=== PATIENT | male | born 1960 | race Caucasian/White ===

== ENCOUNTER 2018-11-09 10:01 | Inpatient (IN) | payer OTHER ==
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
[2018-11-09] MEDS ORDERED: P-EPHED 60MG/TRIPROLIDI 2.5MG TABLET PO PRN (11:45)
[2018-11-09] MEDS ORDERED: ACETAMINOPHEN 325 MG TABLET (FP) PO PRN (11:45)
[2018-11-09] MEDS ORDERED: LOPERAMIDE HCL 2 MG CAPSULE PO PRN (11:45)
[2018-11-09] MEDS ORDERED: MAGNESIUM CITRATE 300 ML BOTTLE PO PRN (11:45)
[2018-11-09] MEDS ORDERED: MAG HYDROX/AL HYDROX/SIMETH 30 ML UNIT-DOSE CUP PO PRN (11:45)
[2018-11-09] MEDS ORDERED: hydrOXYzine PAMOATE 50 MG CAPSULE (FP) PO PRN (11:45)
[2018-11-09] MEDS ORDERED: guaiFENesin/D-METHORPHAN HB 10 ML UNIT-DOSE CUPS PO PRN (11:45)
[2018-11-09] MEDS ORDERED: MENTHOL/PHENOL 1 EACH UD MM PRN (11:45)
[2018-11-09] MEDS ORDERED: chlordiazePOXIDE HCL 25 MG CAPSULE PO PRN (11:45)
[2018-11-09] MEDS ORDERED: MAGNESIUM HYDROX 2400MG/30ML ORAL SUSPENSION 30 ML CUP PO PRN (11:45)
[2018-11-09 11:50] VITALS: BMI 25.1
--- NOTE | 2018-11-09 14:33 | EKG ---
Test Reason : Blood Pressure : / mmHG Vent. Rate : 083 BPM Atrial Rate : 083 BPM P-R Int : 136 ms QRS Dur : 104 ms QT Int : 404 ms P-R-T Axes : 045 -43 032 degrees QTc Int : 474 ms NORMAL SINUS RHYTHM LEFT AXIS DEVIATION ABNORMAL ECG WHEN COMPARED WITH ECG OF 08-OCT-2012 13:05, NO SIGNIFICANT CHANGE WAS FOUND Confirmed by SAUNDRA BUTCHER MD ([id number]) on 11/09/2018 2:33:27 PM Referred By: Confirmed By:SAUNDRA BUTCHER MD
[2018-11-09] MEDS: chlordiazePOXIDE HCL 25 MG CAPSULE PO SCH ×2 (16:59→22:54)
[2018-11-09] MEDS ORDERED: MELATONIN 5 MG TABLETS PO PRN (22:00)
[2018-11-09] MEDS: BACITRACIN 0.9 GM PACKET TP SCH (22:54)
[2018-11-09] MEDS: THIAMINE HCL 100 MG TABLET (FP) PO SCH (22:54)
[2018-11-09 23:24] LABS: URINE APPEARANCE CLEAR; URINE BILIRUBIN NEGATIVE (<2.0 mg/dL); URINE COLOR YELLOW; URINE GLUCOSE (UA) NEGATIVE (NEGATIVE); URINE KETONE NEGATIVE (NEGATIVE); URINE LEUK ESTERASE NEGATIVE (NEGATIVE); URINE NITRITE NEGATIVE (NEGATIVE); URINE PROTEIN NEGATIVE (NEGATIVE)
[2018-11-10] MEDS: chlordiazePOXIDE HCL 25 MG CAPSULE PO SCH ×2 (05:34→11:08)
--- NOTE | 2018-11-10 10:01 | CONSULT ---
[facility] Psychiatric Consult - Data Date of interview: 11/10/18 Admission source: [facility] Identifying data: this 58 yeras old male with alcohol dependence,seeking detox, withdrawal symptom,last detox [facility] 2012 not completed. seizure last 2 weeks ago. syncope. seen at [facility]. longest period of sobriety 15 years. bipolar disorder. frequent fall,last 3 days ago Substance Abuse History: Smoking history: Former smoker. Have you smoked in the past 12 months: No. Aproximately how many cigarettes per day: 0. If you are a former smoker, when did you quit?: at age 51. Hx Chewing Tobacco Use: No. Initiated information on smoking cessation: No. - Substance & Tx. History. Hx Alcohol Use: Yes. Hx Substance Use: Yes. Substance Use Type: Alcohol. Hx Substance Use Treatment: Yes (2011 [facility] not completed). - Substances Abused. Alcohol-beer. Route: Oral. Frequency: Daily. Amount used: 1-6 pk. Age of first use: 11. Date of Last Use: 11/08/18
[2018-11-10 10:55] LABS: HEMATOCRIT 34.3 % (35.4-49); HEMOGLOBIN 11.4 GM/dL (11.7-16.9); MCH 25.8 pg (25.7-33.7); MCHC 33.2 g/dl (32.0-35.9); MEAN CELL VOLUME 77.8 fl (80-96); MEAN PLT VOLUME 9.9 fl (7.5-11.1); PLATELET COUNT 267 K/MM3 (134-434); RBC 4.41 M/mm3 (4.00-5.60); RDW 17.5 % (11.9-15.9); WHITE BLOOD COUNT 4.9 K/mm3 (4.0-10.0)
[2018-11-10] MEDS: PRENATAL VITAMINS W/ FOLIC ACID TABLET (FP) PO SCH (11:08)
[2018-11-10] MEDS: BACITRACIN 0.9 GM PACKET TP SCH ×2 (11:08→22:31)
[2018-11-10 11:31] LABS: ALBUMIN 3.6 g/dl (3.4-5.0); ALK PHOS 150 U/L (45-117); ANION GAP 12 MMOL/L (8-16); BILIRUBIN,TOTAL 0.8 mg/dL (0.2-1); BLOOD UREA NITROGEN 6 mg/dL (7-18); CHLORIDE 102 mmol/L (98-107); CO2 24 mmol/L (21-32); CREATININE 0.6 mg/dL (0.55-1.3); GLUCOSE,RANDOM 93 mg/dL (74-106); POTASSIUM 3.6 mmol/L (3.5-5.1); SGOT/AST 157 U/L (15-37); SGPT/ALT 112 U/L (13-61); SODIUM 139 mmol/L (136-145); TOT PROT 8.3 g/dl (6.4-8.2)
--- NOTE | 2018-11-10 16:35 | PN ---
[facility] CIWA - CIWA Score Nausea/Vomitin-Mild Nausea/No Vomiting Muscle Tremors: 5 Anxiety: 4-Mod. Anxious/Guarded Agitation: 3 Paroxysmal Sweats: 1-Minimal Palms Moist Orientation: 0-Oriented Tacttile Disturbances: 0-None Auditory Disturbances: 0-None Visual Disturbances: 0-None Headache: 0-None Present CIWA-Ar Total Score: 14 [facility] Progress Note (SOAP) Subjective: tremor sweat anxiety nausea Objective: 11/10/18 16:37 Vital Signs Temperature 96.7 F L 11/10/18 09:45 Pulse Rate 102 H 11/10/18 09:45 Respiratory Rate 18 11/10/18 09:45 Blood Pressure 120/83 11/10/18 09:45 O2 Sat by Pulse Oximetry (%) Laboratory Last Values WBC 4.9 K/mm3 (4.0-10.0) 11/10/18 06:00 RBC 4.41 M/mm3 (4.00-5.60) 11/10/18 06:00 Hgb 11.4 GM/dL (11.7-16.9) L 11/10/18 06:00 Hct 34.3 % (35.4-49) L 11/10/18 06:00 MCV 77.8 fl (80-96) L 11/10/18 06:00 MCH 25.8 pg (25.7-33.7) D 11/10/18 06:00 MCHC 33.2 g/dl (32.0-35.9) 11/10/18 06:00 RDW 17.5 % (11.9-15.9) H 11/10/18 06:00 Plt Count 267 K/MM3 (134-434) D 11/10/18 06:00 MPV 9.9 fl (7.5-11.1) D 11/10/18 06:00 Sodium 139 mmol/L (136-145) 11/10/18 06:00 Potassium 3.6 mmol/L (3.5-5.1) 11/10/18 06:00 Chloride 102 mmol/L (98-107) 11/10/18 06:00 Carbon Dioxide 24 mmol/L (21-32) 11/10/18 06:00 Anion Gap 12 MMOL/L (8-16) 11/10/18 06:00 BUN 6 mg/dL (7-18) L 11/10/18 06:00 Creatinine 0.6 mg/dL (0.55-1.3) 11/10/18 06:00 Creat Clearance w eGFR > 60 (>60) 11/10/18 06:00 Random Glucose 93 mg/dL (74-106) 11/10/18 06:00 Calcium 9.0 mg/dL (8.5-10.1) 11/10/18 06:00 Total Bilirubin 0.8 mg/dL (0.2-1) 11/10/18 06:00 AST 157 U/L (15-37) H 11/10/18 06:00 ALT 112 U/L (13-61) H 11/10/18 06:00 Alkaline Phosphatase 150 U/L (45-117) H 11/10/18 06:00 Ammonia 117.10 umol/L (11-32) H 11/10/18 12:20 Total Protein 8.3 g/dl (6.4-8.2) H 11/10/18 06:00 Albumin 3.6 g/dl (3.4-5.0) 11/10/18 06:00 Urine Color Yellow 11/09/18 18:52 Urine Appearance Clear 11/09/18 18:52 Urine pH 8.0 (5.0-8.0) D 11/09/18 18:52 Ur Specific [place] 1.014 (1.010-1.035) 11/09/18 18:52 Urine Protein Negative (NEGATIVE) 11/09/18 18:52 Urine Glucose (UA) Negative (NEGATIVE) 11/09/18 18:52 Urine Ketones Negative (NEGATIVE) 11/09/18 18:52 Urine Blood Negative (NEGATIVE) 11/09/18 18:52 Urine Nitrite Negative (NEGATIVE) 11/09/18 18:52 Urine Bilirubin Negative (<2.0 mg/dL) 11/09/18 18:52 Urine Urobilinogen 2.0 mg/dL (0.2-1.0) 11/09/18 18:52 Ur Leukocyte Esterase Negative (NEGATIVE) 11/09/18 18:52 RPR Titer Nonreactive (NONREACTIVE) 11/10/18 06:00 lab noted lactulose Assessment: 11/10/18 16:36 withdrawal sx Plan: continue detox
[2018-11-10] MEDS ORDERED: chlordiazePOXIDE HCL 25 MG CAPSULE PO SCH (17:00)
[2018-11-10] MEDS ORDERED: ONDANSETRON *ODT* 4 MG TABLET SL ONE (17:15)
[2018-11-10] MEDS: LORazepam 1 MG TABLET PO SCH ×2 (17:36→23:41)
[2018-11-10] MEDS: IBUPROFEN 400 MG TABLET (FP) PO PRN (17:37)
[2018-11-10] MEDS: LACTULOSE 20 GM/30 ML UDC (FOR ORAL USE ONLY) PO SCH ×2 (18:53→22:36)
[2018-11-10] MEDS ORDERED: SUVOREXANT 10 MG TABLET PO PRN (22:00)
[2018-11-10] MEDS: THIAMINE HCL 100 MG TABLET (FP) PO SCH (22:31)
[2018-11-11] MEDS: LORazepam 1 MG TABLET PO SCH ×4 (06:44→23:03)
[2018-11-11] MEDS: LACTULOSE 20 GM/30 ML UDC (FOR ORAL USE ONLY) PO SCH ×4 (11:03→23:09)
[2018-11-11] MEDS: BACITRACIN 0.9 GM PACKET TP SCH ×2 (11:03→23:03)
[2018-11-11] MEDS: PRENATAL VITAMINS W/ FOLIC ACID TABLET (FP) PO SCH (11:05)
[2018-11-11] MEDS: LORazepam 1 MG TABLET PO PRN (11:07)
--- NOTE | 2018-11-11 11:58 | PN ---
[facility] CIWA - CIWA Score Nausea/Vomitin-No Nausea/No Vomiting Muscle Tremors: 3 Anxiety: 3 Agitation: 3 Paroxysmal Sweats: 2 Orientation: 0-Oriented Tacttile Disturbances: 0-None Auditory Disturbances: 0-None Visual Disturbances: 0-None Headache: 0-None Present CIWA-Ar Total Score: 11 S Progress Note (SOAP) Subjective: PATIENT ANXIOUS/RESTLESS. C/O SHAKES, SWEATING AND SLEEP DISTURBANCE. Objective: 11/11/18 11:56 Vital Signs Temperature 96.7 F L 11/11/18 10:49 Pulse Rate 86 11/11/18 10:49 Respiratory Rate 20 11/11/18 10:49 Blood Pressure 97/62 11/11/18 10:49 O2 Sat by Pulse Oximetry (%) Laboratory Tests 11/09/18 11/10/18 11/10/18 18:52 06:00 06:00 WBC 4.9 RBC 4.41 Hgb 11.4 L Hct 34.3 L MCV 77.8 L MCH 25.8 D MCHC 33.2 RDW 17.5 H Plt Count 267 D MPV 9.9 D Sodium 139 Potassium 3.6 Chloride 102 Carbon Dioxide 24 Anion Gap 12 BUN 6 L Creatinine 0.6 Creat Clearance w eGFR > 60 Random Glucose 93 Calcium 9.0 Total Bilirubin 0.8 AST 157 H ALT 112 H Alkaline Phosphatase 150 H Ammonia Total Protein 8.3 H Albumin 3.6 Urine Color Yellow Urine Appearance Clear Urine pH 8.0 D Ur Specific [place] 1.014 Urine Protein Negative Urine Glucose (UA) Negative Urine Ketones Negative Urine Blood Negative Urine Nitrite Negative Urine Bilirubin Negative Urine Urobilinogen 2.0 Ur Leukocyte Esterase Negative RPR Titer 11/10/18 11/10/18 06:00 12:20 WBC RBC Hgb Hct MCV MCH MCHC RDW Plt Count MPV Sodium Potassium Chloride Carbon Dioxide Anion Gap BUN Creatinine Creat Clearance w eGFR Random Glucose Calcium Total Bilirubin AST ALT Alkaline Phosphatase Ammonia 117.10 H Total Protein Albumin Urine Color Urine Appearance Urine pH Ur Specific [place] Urine Protein Urine Glucose (UA) Urine Ketones Urine Blood Urine Nitrite Urine Bilirubin Urine Urobilinogen Ur Leukocyte Esterase RPR Titer Nonreactive PE: +FLUSHED FACIAL SKIN, MOIST ALERT AND ORIENTED X 3 EXT +TREMORS, FULL ROM ANXIOUS RESTLESS Assessment: 11/11/18 11:57 WITHDRAWAL SX ELEVATED AMMONIA LEVEL Plan: CONTINUE DETOX ENCOURAGE ORAL FLUIDS CONTINUE LACTULOSE REPEAT AMMONIA LEVEL IN AM CONTINUE TO MONITOR
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
[2018-11-11] MEDS ORDERED: chlordiazePOXIDE 5 MG CAPSULE PO SCH (17:00)
[2018-11-11] MEDS: IBUPROFEN 400 MG TABLET (FP) PO PRN (17:17)
[2018-11-11] MEDS: THIAMINE HCL 100 MG TABLET (FP) PO SCH (23:03)
[2018-11-12] MEDS: IBUPROFEN 400 MG TABLET (FP) PO PRN (05:14)
[2018-11-12] MEDS: LORazepam 1 MG TABLET PO SCH (05:14)
[2018-11-12] MEDS: LORazepam 1 MG TABLET PO PRN (09:22)
[2018-11-12 09:38] VITALS: BP 102/65; PULSE 67; TEMP 98.3
[2018-11-12] MEDS: LACTULOSE 20 GM/30 ML UDC (FOR ORAL USE ONLY) PO SCH (10:21)
[2018-11-12] MEDS: PRENATAL VITAMINS W/ FOLIC ACID TABLET (FP) PO SCH (10:21)
[2018-11-12] MEDS: BACITRACIN 0.9 GM PACKET TP SCH (10:21)
--- NOTE | 2018-11-12 10:48 | PN ---
S Progress Note (SOAP) Subjective: Irritable, anxious, interrupted sleep, headache, N/V with abdominal pain Patient not sure why he is here, very unhappy for being here Objective: 11/12/18 10:47 Vital Signs - 8 hr 11/12/18 11/12/18 11/12/18 03:30 06:12 09:38 Temperature 97.0 F L 98.3 F Pulse Rate 83 67 Respiratory 18 18 18 Rate Blood Pressure 101/60 102/65 Laboratory Last Values WBC 4.9 K/mm3 (4.0-10.0) 11/10/18 06:00 RBC 4.41 M/mm3 (4.00-5.60) 11/10/18 06:00 Hgb 11.4 GM/dL (11.7-16.9) L 11/10/18 06:00 Hct 34.3 % (35.4-49) L 11/10/18 06:00 MCV 77.8 fl (80-96) L 11/10/18 06:00 MCH 25.8 pg (25.7-33.7) D 11/10/18 06:00 MCHC 33.2 g/dl (32.0-35.9) 11/10/18 06:00 RDW 17.5 % (11.9-15.9) H 11/10/18 06:00 Plt Count 267 K/MM3 (134-434) D 11/10/18 06:00 MPV 9.9 fl (7.5-11.1) D 11/10/18 06:00 Sodium 139 mmol/L (136-145) 11/10/18 06:00 Potassium 3.6 mmol/L (3.5-5.1) 11/10/18 06:00 Chloride 102 mmol/L (98-107) 11/10/18 06:00 Carbon Dioxide 24 mmol/L (21-32) 11/10/18 06:00 Anion Gap 12 MMOL/L (8-16) 11/10/18 06:00 BUN 6 mg/dL (7-18) L 11/10/18 06:00 Creatinine 0.6 mg/dL (0.55-1.3) 11/10/18 06:00 Creat Clearance w eGFR > 60 (>60) 11/10/18 06:00 Random Glucose 93 mg/dL (74-106) 11/10/18 06:00 Calcium 9.0 mg/dL (8.5-10.1) 11/10/18 06:00 Total Bilirubin 0.8 mg/dL (0.2-1) 11/10/18 06:00 AST 157 U/L (15-37) H 11/10/18 06:00 ALT 112 U/L (13-61) H 11/10/18 06:00 Alkaline Phosphatase 150 U/L (45-117) H 11/10/18 06:00 Ammonia 117.10 umol/L (11-32) H 11/10/18 12:20 Total Protein 8.3 g/dl (6.4-8.2) H 11/10/18 06:00 Albumin 3.6 g/dl (3.4-5.0) 11/10/18 06:00 Urine Color Yellow 11/09/18 18:52 Urine Appearance Clear 11/09/18 18:52 Urine pH 8.0 (5.0-8.0) D 11/09/18 18:52 Ur Specific [place] 1.014 (1.010-1.035) 11/09/18 18:52 Urine Protein Negative (NEGATIVE) 11/09/18 18:52 Urine Glucose (UA) Negative (NEGATIVE) 11/09/18 18:52 Urine Ketones Negative (NEGATIVE) 11/09/18 18:52 Urine Blood Negative (NEGATIVE) 11/09/18 18:52 Urine Nitrite Negative (NEGATIVE) 11/09/18 18:52 Urine Bilirubin Negative (<2.0 mg/dL) 11/09/18 18:52 Urine Urobilinogen 2.0 mg/dL (0.2-1.0) 11/09/18 18:52 Ur Leukocyte Esterase Negative (NEGATIVE) 11/09/18 18:52 RPR Titer Nonreactive (NONREACTIVE) 11/10/18 06:00 Labs noted Assessment: 11/12/18 10:48 Withdrawal sx Plan: Continue detox
[2018-11-12] MEDS ORDERED: chlordiazePOXIDE HCL 10 MG CAPSULE PO SCH (17:00)
[2018-11-13] MEDS ORDERED: LORazepam 1 MG TABLET PO ONE (06:00)
== END 2018-11-12 11:38 | disposition left against medical advice (07) | DRG 770 ==
LOC: YASAS 10:01 → Y3N 11:49
PROC: HZ2ZZZZ Detoxification Services for Substance Abuse Treatment (ICD-10-PCS; principal; 2018-11-09)
DX: F10.230 Alcohol dependence with withdrawal, uncomplicated (principal); F19.24 Other psychoactive substance dependence with psychoactive substance-induced mood disorder; F31.9 Bipolar disorder, unspecified; Z63.4 Disappearance and death of family member; B18.2 Chronic viral hepatitis C; R00.0 Tachycardia, unspecified; E72.20 Disorder of urea cycle metabolism, unspecified; E86.0 Dehydration; R29.6 Repeated falls; K21.9 Gastro-esophageal reflux disease without esophagitis; Z86.69 Personal history of other diseases of the nervous system and sense organs; Z88.8 Allergy status to other drugs, medicaments and biological substances; Z87.19 Personal history of other diseases of the digestive system; Z87.891 Personal history of nicotine dependence; Z59.0 Homelessness
CPT/HCPCS: 36415; 80053; 81003; 82140; 85027; 86593; 93005; 93010; Q0162

== ENCOUNTER 2020-10-19 17:26 | Inpatient (IN) | payer OTHER ==
[2020-10-19 17:42] VITALS: BP 101/59; PULSE 102; TEMP 97.6; BMI 26.6
[2020-10-19 20:24] LABS: BASO % 1.5 % (0-2.0); EOS % 15.7 % (0-4.5); HEMATOCRIT 25.5 % (35.4-49); HEMOGLOBIN 7.8 GM/dL (11.7-16.9); LYMPH % 13.4 % (8-40); MCH 21.5 pg (25.7-33.7); MCHC 30.5 g/dl (32.0-35.9); MEAN CELL VOLUME 70.5 fl (80-96); MEAN PLT VOLUME 7.2 fl (7.5-11.1); MONO % 10.5 % (3.8-10.2); NEUT % 58.9 % (42.8-82.8); PLATELET COUNT 198 K/MM3 (134-434); RBC 3.61 M/mm3 (4.00-5.60); RDW 20.8 % (11.9-15.9); WHITE BLOOD COUNT 6.6 K/mm3 (4.0-10.0)
[2020-10-19 20:42] LABS: CHLORIDE 108 mmol/L (98-107); POTASSIUM 3.7 mmol/L (3.5-5.1); SODIUM 140 mmol/L (136-145)
[2020-10-19 20:43] LABS: CALCIUM 8.4 mg/dL (8.5-10.1)
[2020-10-19 20:44] LABS: ALBUMIN 2.5 g/dl (3.4-5.0); ANION GAP 7 MMOL/L (8-16); CO2 26 mmol/L (21-32); GLUCOSE,RANDOM 91 mg/dL (74-106); MAGNESIUM 1.8 mg/dL (1.8-2.4)
[2020-10-19 20:47] LABS: CREATININE 0.6 mg/dL (0.55-1.3); SGOT/AST 143 U/L (15-37); SGPT/ALT 115 U/L (13-61)
[2020-10-19 20:49] LABS: BILIRUBIN,TOTAL 0.9 mg/dL (0.2-1); TOT PROT 7.3 g/dl (6.4-8.2)
[2020-10-19 20:50] LABS: ALK PHOS 184 U/L (45-117)
[2020-10-19 21:39] LABS: ANISOCYTOSIS 3+; MACROCYTOSIS 0; PLATELET ESTIMATE NORMAL
== END 2020-10-20 00:30 | disposition left against medical advice (07) | DRG 770 ==
LOC: JER 17:26 → JERBED 22:22
PROVIDERS: ADMIT Internal Medicine; ATTEND Internal Medicine
DX: F10.129 Alcohol abuse with intoxication, unspecified (principal); R55 Syncope and collapse; K21.9 Gastro-esophageal reflux disease without esophagitis; D64.9 Anemia, unspecified; B19.20 Unspecified viral hepatitis C without hepatic coma
CPT/HCPCS: 36415; 70450-TC; 71045-TC-FY; 72125-TC; 80053; 82550; 83735; 84484; 85025; 93005; 93010; 99285-25; C9803; U0003

== ENCOUNTER 2024-12-14 00:09 | Inpatient (IN) | payer OTHER ==
[2024-12-14] MEDS ORDERED: THIAMINE HCL 200 MG/2 ML VIAL ONE ×2 (02:08→05:02)
[2024-12-14] MEDS: THIAMINE HCL 200 MG/2 ML VIAL IVPB ONE ×3 (03:00→05:25)
[2024-12-14 03:14] LABS: BASO % 0.7 % (0-2.0); EOS % 3.5 % (0-4.5); HEMATOCRIT 37.4 % (35.4-49); HEMOGLOBIN 12.4 GM/dL (11.7-16.9); MCH 28.4 pg (25.7-33.7); MCHC 33.1 g/dl (32.0-35.9); MEAN CELL VOLUME 85.6 fl (80-96); MEAN PLT VOLUME 7.9 fl (7.5-11.1); MONO % 10.8 % (3.8-10.2); PLATELET COUNT 68 10^3/uL (134-434); RBC 4.37 M/mm3 (4.00-5.60); RDW 16.4 % (11.9-15.9); WHITE BLOOD COUNT 3.1 K/mm3 (4.0-10.0)
[2024-12-14 03:26] LABS: VENOUS BASE EXCESS -1.5 mmol/L (-2-2); VENOUS O2 SATURATION 82.2 % (70-80); VENOUS PH 7.468 (7.310-7.410)
[2024-12-14 03:32] LABS: POTASSIUM 3.9 mmol/L (3.5-5.1)
[2024-12-14 03:34] LABS: ALBUMIN 2.9 g/dl (3.4-5.0); CALCIUM 8.8 mg/dL (8.5-10.1)
[2024-12-14 03:35] LABS: BLOOD UREA NITROGEN 10.3 mg/dL (7-18)
[2024-12-14 03:37] LABS: CREATININE 0.6 mg/dL (0.55-1.3)
[2024-12-14 03:39] LABS: TOT PROT 7.6 g/dl (6.4-8.2)
[2024-12-14] MEDS ORDERED: FOLIC ACID 1 MG TABLET (FP) ONE (08:57)
[2024-12-14] MEDS: FOLIC ACID 1 MG TABLET (FP) PO SCH (09:10)
[2024-12-14 13:05] LABS: EPI CELLS 5 /uL (0-25.1); HYALINE CASTS 0 /uL (0-3.1); URINE APPEARANCE CLEAR; URINE BACTERIA 3 /uL (0-1359); URINE BILIRUBIN NEGATIVE (NEGATIVE); URINE COLOR DK YELLOW; URINE GLUCOSE (UA) NEGATIVE (NEGATIVE); URINE KETONE 1+ (NEGATIVE); URINE LEUK ESTERASE TRACE (NEGATIVE); URINE NITRITE NEGATIVE (NEGATIVE); URINE PROTEIN NEGATIVE (NEGATIVE); URINE RBC 42 /uL (0-23.9); URINE WBC 28 /uL (0-25.8)
[2024-12-14 14:32] LABS: COCAINE, UR NEGATIVE (NEGATIVE); METHADONE, UR NEGATIVE (NEGATIVE); OPIATES, URI NEGATIVE (NEGATIVE); PHENCYCLIDINE,URINE NEGATIVE (NEGATIVE); URINE AMPHETAMINES NEGATIVE (NEGATIVE); URINE BARBITURATES NEGATIVE (NEGATIVE); URINE BENZODIAZEPINES POSITIVE (NEGATIVE)
[2024-12-14] MEDS: TAMSULOSIN HCL 0.4 MG CAP PO SCH (14:32)
[2024-12-14] MEDS: LORazepam 2 MG/ML SDV VIAL IVPUSH PRN (14:58)
[2024-12-14] MEDS: LACTATED RINGERS SOLUTION 1,000 ML/1,000 ML INFUS.BAG IV SCH (15:05)
[2024-12-14] MEDS: LACTULOSE 20 GM/30 ML UDC (FOR ORAL USE ONLY) PO SCH (21:32)
[2024-12-14] MEDS ORDERED: LORazepam 2 MG/ML SDV VIAL IVPUSH PRN ×2 (21:40→21:41)
[2024-12-15 08:55] LABS: POTASSIUM 3.5 mmol/L (3.5-5.1)
[2024-12-15 09:03] LABS: ALBUMIN 2.7 g/dl (3.4-5.0); BLOOD UREA NITROGEN 9.7 mg/dL (7-18); CALCIUM 8.3 mg/dL (8.5-10.1); MAGNESIUM 1.7 mg/dL (1.8-2.4)
[2024-12-15 09:06] LABS: BILIRUBIN,TOTAL 1.3 mg/dL (0.2-1); CREATININE 0.5 mg/dL (0.55-1.3); PHOSPHOROUS 2.9 mg/dL (2.5-4.9); TOT PROT 6.8 g/dl (6.4-8.2)
[2024-12-15] MEDS: ENOXAPARIN NA (PORCINE) 40 MG/0.4 ML DISP.SYRIN SQ SCH (10:40)
[2024-12-15] MEDS: THIAMINE 100 MG TABLET PO SCH (10:40)
[2024-12-15] MEDS: AMMONIUM LACTATE 12% LOTION 225 GM BOTTLE TP SCH (10:40)
[2024-12-15] MEDS ORDERED: ACETAMINOPHEN 325 MG TABLET (FP) PO PRN (16:29)
[2024-12-15] MEDS ORDERED: SENNOSIDES 8.6MG TABLET (FP) PO PRN (16:32)
[2024-12-15] MEDS ORDERED: LACTATED RINGERS SOLUTION 1,000 ML/1,000 ML INFUS.BAG IV SCH (17:15)
[2024-12-15] MEDS: ACETAMINOPHEN 325 MG TABLET (FP) PO PRN (17:43)
[2024-12-15] MEDS: POLYETHYLENE GLYCOL (HEALTHYLAX) 3350 17 GM PACKET PO SCH (17:48)
[2024-12-15] MEDS: MAGNESIUM OXIDE 400 MG TABLET (FP) PO ONE ×2 (19:04→19:31)
[2024-12-15 21:00] LABS: HEMATOCRIT 37.9 % (35.4-49); HEMOGLOBIN 12.7 GM/dL (11.7-16.9); MCH 28.5 pg (25.7-33.7); MCHC 33.4 g/dl (32.0-35.9); MEAN CELL VOLUME 85.5 fl (80-96); MEAN PLT VOLUME 8.8 fl (7.5-11.1); PLATELET COUNT 76 10^3/uL (134-434); RBC 4.43 M/mm3 (4.00-5.60); RDW 16.3 % (11.9-15.9)
[2024-12-15 21:11] LABS: POTASSIUM 3.5 mmol/L (3.5-5.1)
[2024-12-15 21:14] LABS: ALBUMIN 2.8 g/dl (3.4-5.0); BLOOD UREA NITROGEN 10.5 mg/dL (7-18); CALCIUM 8.7 mg/dL (8.5-10.1); MAGNESIUM 1.7 mg/dL (1.8-2.4)
[2024-12-15 21:18] LABS: CREATININE 0.7 mg/dL (0.55-1.3)
[2024-12-15 21:19] LABS: BILIRUBIN,TOTAL 1.3 mg/dL (0.2-1); TOT PROT 7.3 g/dl (6.4-8.2)
[2024-12-15 21:23] LABS: WHITE BLOOD COUNT 1.9 K/mm3 (4.0-10.0)
[2024-12-15 22:14] LABS: ANISOCYTOSIS 2+; MACROCYTOSIS 0; OVALOCYTE 1+
[2024-12-15] MEDS: LORazepam 1 MG TABLET PO ONE (22:58)
[2024-12-15] MEDS: LORazepam 2 MG/ML SDV VIAL IM ONE (23:25)
[2024-12-16 09:15] LABS: HEMATOCRIT 39.7 % (35.4-49); HEMOGLOBIN 12.8 GM/dL (11.7-16.9); MCHC 32.2 g/dl (32.0-35.9); MEAN CELL VOLUME 87.1 fl (80-96); MEAN PLT VOLUME 8.5 fl (7.5-11.1); PLATELET COUNT 82 10^3/uL (134-434); RBC 4.56 M/mm3 (4.00-5.60); RDW 16.2 % (11.9-15.9)
[2024-12-16 09:17] LABS: POTASSIUM 3.7 mmol/L (3.5-5.1)
[2024-12-16 09:28] LABS: WHITE BLOOD COUNT 1.5 K/mm3 (4.0-10.0)
[2024-12-16 09:33] LABS: ALBUMIN 2.7 g/dl (3.4-5.0); BILIRUBIN,TOTAL 1.2 mg/dL (0.2-1); BLOOD UREA NITROGEN 9.2 mg/dL (7-18); CALCIUM 8.4 mg/dL (8.5-10.1); CREATININE 0.5 mg/dL (0.55-1.3)
[2024-12-16 10:54] LABS: ANISOCYTOSIS 0; HELMET CELLS 0; HOWELL-JOLLY BODIES 0; MACROCYTOSIS 0; OVALOCYTE 0; ROULEAU 0; SICKELED CELLS 0; TARGET CELLS 0; TEAR DROP CELLS 0; TOXIC GRANULATION 0
[2024-12-16] MEDS: LORazepam 1 MG TABLET PO ONE (22:43)
[2024-12-17] MEDS ORDERED: LORazepam 1 MG TABLET PO PRN (04:00)
[2024-12-17 08:00] LABS: HEMATOCRIT 38.3 % (35.4-49); HEMOGLOBIN 12.4 GM/dL (11.7-16.9); MCH 28.4 pg (25.7-33.7); MCHC 32.5 g/dl (32.0-35.9); MEAN CELL VOLUME 87.2 fl (80-96); MEAN PLT VOLUME 7.9 fl (7.5-11.1); PLATELET COUNT 77 10^3/uL (134-434); RBC 4.39 M/mm3 (4.00-5.60); RDW 16.2 % (11.9-15.9)
[2024-12-17 08:12] LABS: POTASSIUM 3.6 mmol/L (3.5-5.1)
[2024-12-17 08:16] LABS: BLOOD UREA NITROGEN 11.2 mg/dL (7-18); CALCIUM 8.4 mg/dL (8.5-10.1)
[2024-12-17 08:17] LABS: ALBUMIN 2.7 g/dl (3.4-5.0); MAGNESIUM 1.9 mg/dL (1.8-2.4)
[2024-12-17 08:20] LABS: CREATININE 0.5 mg/dL (0.55-1.3)
[2024-12-17 08:39] LABS: WHITE BLOOD COUNT 1.4 K/mm3 (4.0-10.0)
[2024-12-17 09:54] LABS: INR 1.16 (0.83-1.09); PROTHROMBIN TIME (PATIENT) 13.3 SEC (9.7-13.0)
[2024-12-17 09:57] LABS: ACTIVATED PTT 31.3 SECONDS (25.2-36.5)
[2024-12-17 10:10] VITALS: RESP 18
[2024-12-17 10:21] LABS: ANISOCYTOSIS 0; HELMET CELLS 0; HOWELL-JOLLY BODIES 0; MACROCYTOSIS 0; OVALOCYTE 0; ROULEAU 0; SICKELED CELLS 0; TARGET CELLS 0; TEAR DROP CELLS 0; TOXIC GRANULATION 0
[2024-12-18 08:28] LABS: HEMATOCRIT 36.2 % (35.4-49); HEMOGLOBIN 12.4 GM/dL (11.7-16.9); MCH 29.2 pg (25.7-33.7); MCHC 34.1 g/dl (32.0-35.9); MEAN CELL VOLUME 85.5 fl (80-96); MEAN PLT VOLUME 7.8 fl (7.5-11.1); PLATELET COUNT 76 10^3/uL (134-434); RBC 4.24 M/mm3 (4.00-5.60); RDW 16.2 % (11.9-15.9)
[2024-12-18 08:37] LABS: POTASSIUM 3.5 mmol/L (3.5-5.1)
[2024-12-18 08:43] LABS: ALBUMIN 2.6 g/dl (3.4-5.0); BLOOD UREA NITROGEN 8.7 mg/dL (7-18); CALCIUM 8.5 mg/dL (8.5-10.1); MAGNESIUM 1.7 mg/dL (1.8-2.4)
[2024-12-18 08:46] LABS: CREATININE 0.5 mg/dL (0.55-1.3); WHITE BLOOD COUNT 1.6 K/mm3 (4.0-10.0)
[2024-12-18 08:47] LABS: BILIRUBIN,TOTAL 0.9 mg/dL (0.2-1); TOT PROT 6.8 g/dl (6.4-8.2)
[2024-12-18 09:59] LABS: ANISOCYTOSIS 0; HELMET CELLS 0; HOWELL-JOLLY BODIES 0; MACROCYTOSIS 0; OVALOCYTE 0; ROULEAU 0; SICKELED CELLS 0; TARGET CELLS 0; TEAR DROP CELLS 0; TOXIC GRANULATION 0
[2024-12-18] MEDS: MAGNESIUM OXIDE 400 MG TABLET (FP) PO SCH (11:40)
[2024-12-19 06:39] LABS: POTASSIUM 3.9 mmol/L (3.5-5.1)
[2024-12-19 06:44] LABS: ALBUMIN 2.6 g/dl (3.4-5.0); BLOOD UREA NITROGEN 10.1 mg/dL (7-18); CALCIUM 8.5 mg/dL (8.5-10.1)
[2024-12-19 06:45] LABS: MAGNESIUM 1.8 mg/dL (1.8-2.4)
[2024-12-19 06:47] LABS: CREATININE 0.5 mg/dL (0.55-1.3)
[2024-12-19 06:48] LABS: BILIRUBIN,TOTAL 0.8 mg/dL (0.2-1); TOT PROT 6.9 g/dl (6.4-8.2)
[2024-12-19 06:51] LABS: BASO % 0.9 % (0-2.0); EOS % 15.1 % (0-4.5); HEMATOCRIT 38.7 % (35.4-49); HEMOGLOBIN 12.6 GM/dL (11.7-16.9); MCH 28.3 pg (25.7-33.7); MCHC 32.6 g/dl (32.0-35.9); MEAN CELL VOLUME 86.8 fl (80-96); MEAN PLT VOLUME 7.9 fl (7.5-11.1); PLATELET COUNT 83 10^3/uL (134-434); RBC 4.47 M/mm3 (4.00-5.60); RDW 16.5 % (11.9-15.9)
[2024-12-19 07:00] LABS: WHITE BLOOD COUNT 1.8 K/mm3 (4.0-10.0)
[2024-12-19] MEDS: MIDODRINE HCL 5 MG TABLET PO SCH (10:45)
[2024-12-19 11:32] LABS: ANISOCYTOSIS 0; MACROCYTOSIS 0; OVALOCYTE 1+
[2024-12-19] MEDS: ACETAMINOPHEN 1000 MG/100 ML BAG IVPB ONE (22:25)
[2024-12-20 12:05] LABS: BASO % 0.7 % (0-2.0); EOS % 13.9 % (0-4.5); LYMPH % 18.3 % (8-40); MCH 28.7 pg (25.7-33.7); MCHC 33.3 g/dl (32.0-35.9); MEAN CELL VOLUME 86.2 fl (80-96); MEAN PLT VOLUME 7.6 fl (7.5-11.1); NEUT % 43.1 % (42.8-82.8); PLATELET COUNT 71 10^3/uL (134-434); RBC 4.52 M/mm3 (4.00-5.60); RDW 16.6 % (11.9-15.9)
[2024-12-20 12:21] LABS: WHITE BLOOD COUNT 1.5 K/mm3 (4.0-10.0)
[2024-12-20 12:25] LABS: POTASSIUM 3.4 mmol/L (3.5-5.1)
[2024-12-20 12:31] LABS: CALCIUM 8.7 mg/dL (8.5-10.1)
[2024-12-20 12:32] LABS: ALBUMIN 2.6 g/dl (3.4-5.0); BLOOD UREA NITROGEN 7.9 mg/dL (7-18); MAGNESIUM 1.8 mg/dL (1.8-2.4)
[2024-12-20 12:35] LABS: CREATININE 0.5 mg/dL (0.55-1.3)
[2024-12-20 12:37] LABS: BILIRUBIN,TOTAL 0.8 mg/dL (0.2-1); TOT PROT 6.8 g/dl (6.4-8.2)
[2024-12-20 12:48] LABS: ANISOCYTOSIS 0; MACROCYTOSIS 0; OVALOCYTE 1+
[2024-12-20 14:02] VITALS: BMI 23.8
[2024-12-20] MEDS: traMADol HCL 50 MG TABLET PO PRN (17:14)
[2024-12-20] MEDS: LORazepam 1 MG TABLET PO PRN (22:50)
[2024-12-21] MEDS: POTASSIUM CHLORIDE ORAL LIQUID 20 MEQ/15 ML PO ONE (17:00)
[2024-12-22 10:36] VITALS: BP 97/68; PULSE 76; TEMP 98
== END 2024-12-22 11:58 | disposition other institution (70) ==
LOC: JER 00:09 → INTOOBSV 07:19 → JERBED 07:19 → UNDOADMOB 07:19 → JERBED 07:36 → J7W 11:52 → OBSVTOIN 12-17 11:58
PROVIDERS: ADMIT Internal Medicine
DX: K76.82 Hepatic encephalopathy (principal); N40.1 Benign prostatic hyperplasia with lower urinary tract symptoms; F11.20 Opioid dependence, uncomplicated; R33.9 Retention of urine, unspecified; D69.6 Thrombocytopenia, unspecified; R21 Rash and other nonspecific skin eruption; F31.9 Bipolar disorder, unspecified; D70.9 Neutropenia, unspecified; F10.230 Alcohol dependence with withdrawal, uncomplicated; E83.42 Hypomagnesemia; E87.6 Hypokalemia; K86.1 Other chronic pancreatitis; I95.89 Other hypotension; K59.00 Constipation, unspecified
CPT/HCPCS: 36415; 70450-TC; 72131-TC; 74176-TC; 74177-TC; 76775-TC; 80053; 80307; 81003; 82140; 82607; 82746; 82803; 83690; 83735; 84100; 84443; 84484; 85025; 85384; 85610; 85730; 87086; 93005; 93010; 97116-GP; 97162-GP; 99285-25; G0378; Q9967